=== PATIENT | female | born 2005 | race Caucasian/White ===

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

== ENCOUNTER 2024-04-08 10:25 | Day surgery (SDC) | payer BC ==
[~2024-04-08 10:25] MED LIST: Sodium Chloride 0.9% 10 ML Syringe FLUSH PRN; Sodium Chloride 0.9% 2.5 ML Syringe FLUSH PRN; Sodium Chloride 0.9% 20 ML SDV IV PRN
[2024-04-08] MEDS: Lactated Ringers 1,000 ML IV SCH (11:18)
[2024-04-08] MEDS ORDERED: Midazolam 1 MG/ML 2 ML SDV ONE (11:45)
[2024-04-08] MEDS ORDERED: Lidocaine 2% 5 ML SDV ONE (11:54)
[2024-04-08] MEDS ORDERED: Propofol 200 MG/20 ML SDV ONE ×2 (11:54→13:06)
== END 2024-04-08 13:52 | disposition home or self-care (01) ==
LOC: MW.SDS 10:25
PROVIDERS: ATTEND Surgery
DX: K29.50 Unspecified chronic gastritis without bleeding (principal); K21.9 Gastro-esophageal reflux disease without esophagitis; F41.9 Anxiety disorder, unspecified; Z79.899 Other long term (current) drug therapy; Z86.16 Personal history of COVID-19
CPT/HCPCS: 43239; 81025; J2250; J2704; J7120; 00731; J3490